=== PATIENT | male | born 1990 | race Native Hawaiian/Other Pacific Islander ===

== ENCOUNTER 2018-04-19 05:19 | Emergency (ER) | payer SELFPAY ==
[~2018-04-19] VITALS: Ht 172.7 cm; Wt 81.6 kg
[2018-04-19 05:50] VITALS: BP 150/96
[2018-04-19] MEDS ORDERED: cefTRIAXone SOD 1,000 MG VL ONE (07:37)
[2018-04-19] MEDS ORDERED: cefTRIAXone SOD 1,000 MG VL IM ONE (07:45)
[2018-04-19] MEDS ORDERED: HYDROcodone-ACET 5/325MG TAB PO ONE (08:00)
== END 2018-04-19 08:06 | disposition home or self-care (01) ==
LOC: ER 05:23
DX: L03.116 Cellulitis of left lower limb (principal)
CPT/HCPCS: 73630; 87205; 96372; 99285; J0696; 87077; 87186